=== PATIENT | female | born 1960 | race Caucasian/White ===

== ENCOUNTER 2022-06-28 19:37 | Emergency (ER) | payer BC ==
[~2022-06-28] VITALS: Ht 172.7 cm; Wt 69.9 kg
[2022-06-28] MEDS ORDERED: Glipizide2.5 MG PO (20:27)
[2022-06-28] MEDS ORDERED: MOUNJARO2.5 MG/0.1 SQ (20:29)
[2022-06-28] MEDS ORDERED: POTASSIUM99 M7 PO (20:29)
[2022-06-28] MEDS ORDERED: CALCIUM 1,0001 EAC3 PO (20:29)
[2022-06-28] MEDS ORDERED: ZESTRIL2.5 MG PO (20:30)
[2022-06-28] MEDS ORDERED: JARDIANCE25 MG PO (20:30)
[2022-06-28] MEDS ORDERED: LORAZEPAM0.5 M1 PO (20:30)
[2022-06-28] MEDS ORDERED: CLARITIN10 MG PO (20:31)
[2022-06-28] MEDS ORDERED: GLUMETZA500 MG PO (20:31)
[2022-06-28] MEDS ORDERED: LEVOTHYROXINE100 MC1 PO (20:31)
[2022-06-28] MEDS ORDERED: PRAVASTATIN SOD80 MG PO (20:32)
[2022-06-28] MEDS ORDERED: SERTRALINE HYDR50 MG PO (20:32)
[2022-06-28] MEDS ORDERED: Percocet 325 MG1 TAB PO (22:20)
[2022-06-28] MEDS ORDERED: PROVENTIL HFA6.7 GM PO (22:20)
== END 2022-06-28 23:19 | disposition home or self-care (01) ==
LOC: ED 19:37
DX: S82.254A Nondisplaced comminuted fracture of shaft of right tibia, initial encounter for closed fracture (principal); E03.9 Hypothyroidism, unspecified; E11.9 Type 2 diabetes mellitus without complications; R51.9 Headache, unspecified; Z88.0 Allergy status to penicillin; W10.9XXA Fall (on) (from) unspecified stairs and steps, initial encounter; Y93.89 Activity, other specified; Y92.009 Unspecified place in unspecified non-institutional (private) residence as the place of occurrence of the external cause; Y99.8 Other external cause status